=== PATIENT | female | born 1955 | race Caucasian/White ===

== ENCOUNTER → 2017-08-16 | Outpatient (CLI) | payer OTHER ==
[~2017-08-16] MED LIST: ASPCH81X PO; ATEN-171 PO; CLOP1TAB15 PO; CRS/10 PO; FEXO1TAB58 PO; HYDR25SU20 PR; NITR0.4S UT; OPTIRAY 320 IV PRN; POTA-335 PO
--- NOTE | 2017-08-16 13:22 | DIAGNOSTIC IMAGING REPORT ---
CT SCAN OF THE CHEST, ABDOMEN, AND PELVIS WITH IV CONTRAST CLINICAL HISTORY: Colon cancer. COMPARISON STUDY: Chest x-ray dated 10/12/2012. TECHNIQUE: Following the IV administration of 94 of Optiray 320, CT scan of the chest, abdomen, and pelvis was performed from the thoracic inlet to the proximal femora. Images are reviewed in the axial, sagittal, and coronal planes. IV contrast was administered without complication. Automated dose control exposure was utilized. A dose lowering technique was utilized adhering to the principles of ALARA. CT DOSE: 1154.62 mGy.cm FINDINGS: CHEST: Thyroid: Imaged portions of the thyroid gland are normal in size and attenuation. Low-attenuation thyroid nodules measure up to 12 mm. Thoracic aorta: The thoracic aorta is normal in caliber and demonstrates standard 3-vessel arch anatomy. No dissection is seen. Pulmonary vasculature: The pulmonary trunk is normal in caliber. There are no filling defects identified in the central pulmonary vessels to indicate pulmonary embolus. Note that this examination was not protocoled for evaluation of the pulmonary arteries. Heart: The heart is normal in size and without pericardial effusion. The coronary arteries are densely calcified. Lungs and pleural spaces: The lungs and pleural spaces are clear. The trachea and central airways are patent. Mediastinum: There is no mediastinal lymphadenopathy. Basia: Clear. Axillae: There is no axillary lymphadenopathy. Bony thorax: The skeletal structures are osteopenic. Degenerative change is noted throughout the thoracic spine. Sclerotic foci are seen in the bodies of T4 and T6, measuring up to 9 mm. These likely represent bone islands. No destructive osseous lesion is clearly seen. ABDOMEN AND PELVIS: Liver: The contrast-enhanced liver is top normal in size measuring 17.5 cm in length. The liver demonstrates diffusely diminished attenuation consistent with hepatic steatosis. More focal fatty infiltration is seen adjacent to falciform ligament. There is no intrahepatic or ductal dilatation. The hepatic veins and portal veins are patent. Gallbladder: Unremarkable. Spleen: Normal in size and attenuation. There are calcified splenic granulomas. There is a 1.4 cm peripherally calcified splenic artery aneurysm. Pancreas: Unremarkable. Adrenal glands: Unremarkable. Kidneys: The contrast enhanced kidneys demonstrate mild cortical atrophy and are without hydronephrosis. There are small bilateral extrarenal pelvises. The kidneys enhance symmetrically. Abdominal vasculature: The abdominal aorta is normal in course and caliber noting mild atherosclerotic calcification. Bowel: There are postoperative changes from sigmoid colon resection with colocolonic anastomosis. No bowel obstruction is identified. There are scattered colonic diverticula without CT evidence of acute diverticulitis. Mild colonic fecal retention is observed. The appendix is well-visualized and normal. Peritoneum: There is no intraperitoneal free air or abdominal ascites. Lymphadenopathy: None. Pelvic viscera: The bladder, uterus, and adnexa are normal as visualized. Skeletal structures: The skeletal structures are osteopenic. There is mild to moderate lumbosacral spondylosis. No lytic or blastic lesions are seen. IMPRESSION: 1. There is no evidence of metastatic disease in the chest, abdomen, or pelvis. 2. There are postoperative changes from sigmoid colon resection with colonic anastomosis. No bowel obstruction is seen. 3. Mild colonic diverticulosis without CT evidence of acute diverticulitis. 4. Hepatic steatosis. 5. The lungs are clear. 6. There is a 1.4 cm peripherally calcified splenic artery aneurysm. 7. Additional findings as above. Electronically signed by: Antonio Meléndez M.D. 08/16/2017 1:21 PM Dictated Date/Time: 08/16/2017 1:00 PM
== END | disposition home or self-care (01) ==
LOC: C.CTS 12:24
PROVIDERS: ATTEND Internal Medicine Hematology & Oncology
DX: Z85.038 Personal history of other malignant neoplasm of large intestine (principal); K76.0 Fatty (change of) liver, not elsewhere classified; I72.8 Aneurysm of other specified arteries

== ENCOUNTER → 2017-11-23 | Outpatient (CLI) | payer OTHER ==
[~2017-11-23] MED LIST changes: -OPTIRAY 320 IV PRN
[2017-11-23 13:00] LABS: ALBUMIN 4.2 gm/dl (3.4-5.0); ALKALINE PHOSPHATASE 103 U/L (45-117); ALT/SGPT 29 U/L (12-78); AST/SGOT 16 U/L (15-37); BLOOD UREA NITROGEN 20 mg/dl (7-18); CARBON DIOXIDE 27 mmol/L (21-32); CHOLESTEROL 125 mg/dl (0-200); CREATININE 0.96 mg/dl (0.60-1.20); GLUCOSE 107 mg/dl (70-99); LDL CHOLESTEROL CALCULATED 57 mg/dl; POTASSIUM 3.7 mmol/L (3.5-5.1); SODIUM 142 mmol/L (136-145); TOTAL PROTEIN 7.1 gm/dl (6.4-8.2)
== END | disposition home or self-care (01) ==
LOC: C.LABBFT 07:51
PROVIDERS: ATTEND Internal Medicine
DX: Z00.00 Encounter for general adult medical examination without abnormal findings (principal); I10 Essential (primary) hypertension; E78.5 Hyperlipidemia, unspecified; I25.10 Atherosclerotic heart disease of native coronary artery without angina pectoris; R20.2 Paresthesia of skin

== ENCOUNTER 2019-05-30 09:46 | Inpatient (IN) ==
[2019-05-30] MEDS ORDERED: SODIUM CHLORIDE 0.9% 500 ML IV ONE (10:55)
[2019-05-30 11:17] LABS: Basophils # (auto) 0.03 K/uL (0-0.2); Basophils % (auto) 0.5 %; Eosinophils # (auto) 0.16 K/uL (0-0.5); Eosinophils % (auto) 2.6 %; Hematocrit (blood only) 38.2 % (37-47); Hemoglobin 13.4 g/dL (12.0-16.0); Immature Granulocytes # (auto) 0.02 K/uL (0.00-0.02); Immature Granulocytes % (auto) 0.3 %; Lymphocytes # (auto) 1.54 K/uL (1.2-3.4); Lymphocytes % (auto) 25.5 %; Mean Corpuscular Hemoglobin 30.2 pg (25-34); Mean Corpuscular Hgb Conc 35.1 g/dL (32-36); Mean Platelet Volume 10.7 fL (7.4-10.4); Monocytes # (auto) 0.55 K/uL (0.11-0.59); Monocytes % (auto) 9.1 %; Neutrophils # (auto) 3.74 K/uL (1.4-6.5); Platelet Count 245 K/uL (130-400); RDW Standard Deviation 41.4 fL (36.4-46.3); Red Blood Count 4.44 M/uL (4.2-5.4); White Blood Count 6.04 K/uL (4.8-10.8)
[2019-05-30 11:33] LABS: Partial Thromboplastin Time 26.8 Seconds (21.0-31.0); Prothrombin Time 10.2 Seconds (9.0-12.0)
[2019-05-30 11:35] LABS: Alanine Aminotransferase 24 U/L (12-78); Aspartate Aminotransferase 11 U/L (15-37); BUN Creatinine Ratio 16.5 (10-20); Blood Urea Nitrogen 19 mg/dl (7-18); Calcium 9.2 mg/dl (8.5-10.1); Carbon Dioxide 26 mmol/L (21-32); Chloride 110 mmol/L (98-107); Creatinine Clr Calc Pharmacy 51.3 ml/min; Est GFR (African American) 57.2; Est GFR (Non-African American) 49.4; Glucose 126 mg/dl (70-99); Lipase 169 U/L (73-393); Magnesium 1.5 mg/dl (1.8-2.4); Potassium 3.5 mmol/L (3.5-5.1); Sodium 140 mmol/L (136-145)
[2019-05-30 11:46] LABS: Albumin Globulin Ratio 1.1 (0.9-2); Alkaline Phosphatase 119 U/L (45-117); Bilirubin,Total 0.6 mg/dl (0.2-1); Globulin 3.6 gm/dl (2.5-4.0); Phosphorus 2.7 mg/dl (2.5-4.9); Total Protein 7.6 gm/dl (6.4-8.2); Troponin I < 0.015 ng/ml (0-0.045)
[2019-05-30 12:09] LABS: Appearance Urine Clear (Clear); Bilirubin Urine Negative (Negative); Blood Urine Negative (Negative); Color Urine Yellow; Glucose Urine UA Negative (Negative); Ketones Urine Negative (Negative); Leukocyte Esterase Urine Negative (Negative); Nitrite Urine Negative (Negative); Protein Urine Negative (Negative); Specific Gravity Urine 1.007 (1.000-1.030); Urobilinogen Urine Negative (Negative)
--- NOTE | 2019-05-30 12:21 | XRay Report ---
XR chest 1V portable HISTORY: Atypical Chest Pain COMPARISON: Chest 10/20/2012. FINDINGS: The lungs are clear. Cardiac silhouette is normal in size. No pleural effusions. No pneumot horax. IMPRESSION: No acute process. ACT 112: Negative or not required by law. Electronically signed by: Daniel Andrews M.D. 05/30/2019 12:19 PM
[2019-05-30] MEDS ORDERED: OPTIRAY 320 125ml IV PRN (12:26)
--- NOTE | 2019-05-30 12:44 | CT Scan Report ---
CT head/brain wo con CLINICAL HISTORY: 63 years-old Female with dizziness, ataxia. Acute dizziness TECHNIQUE: Multiple axial CT images of the head were obtained without contrast. A dose lowering tech nique was utilized adhering to the principles of ALARA. COMPARISON: None. FINDINGS: No acute intracranial hemorrhage, midline shift, intracranial mass, hydrocephalus, territorial ischem ia or abnormal extra-axial collection. Age-related involutional changes. Mild patchy white matter hyp odensities suggest chronic microvascular ischemic disease. Cerebral vascular calcifications are noted . Subtle decreased attenuation of the left thalamus, and left cerebral peduncle. Cerebral vascular ca lcifications are noted. The calvarium is intact. The paranasal sinuses, mastoid air cells, and middle ear cavities are clear . IMPRESSION: 1. No acute intracranial hemorrhage, midline shift or acute territorial infarct. 2. Ill-defined decreased attenuation of the left elaine and left cerebral peduncle may be artifactual o r reflect a small subtle acute infarct. Correlate with clinical presentation. ACT 112: Negative or not required by law. The above report was generated using voice recognition software. It may contain grammatical, syntax o r spelling errors. Electronically signed by: Saleem Groves M.D. 05/30/2019 12:39 PM
--- NOTE | 2019-05-30 12:53 | CT Scan Report ---
CT angio neck with con CLINICAL HISTORY: 63 years-old Female presenting with dizziness, ataxia. TECHNIQUE: Multidetector CT angiography of the neck was performed after the administration of intrave nous contrast. 3-D volumetric and/or maximum intensity projection (MIP) images were subsequently delmy nstructed for review. IV contrast: 120 mL of Optiray 320. One or more dose lowering techniques were u sed consistent with the principles of ALARA (as low as reasonably achievable), including automatic ex posure control, mA or kV adjustment to individual patient size, and/or use of iterative reconstructio n. Stenosis measurements were based on NASCET-like criteria (distal lumen diameter as the denominator for stenosis measurement). COMPARISON: None. CT DOSE (mGy.cm): The estimated cumulative dose is 1099.92 mGy.cm. 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 Aortic arch: Normal three-vessel aortic arch with patent origins of the branch vessels. Innominate artery: Patent. Right subclavian artery: Patent. Right common carotid artery: Patent. Right internal and external carotid arteries: Right carotid bifurcation patent. Right internal and ex ternal carotid arteries widely patent. Left common carotid artery: Patent. Left internal and external carotid arteries: Left carotid bifurcation patent. Left internal and exter nal carotid arteries widely patent. Left subclavian artery: Patent though there is focal calcified atherosclerotic plaque along the proxi mal course with less than 25% stenosis. Vertebral arteries: Codominant vertebral arteries. Origins and courses of the bilateral vertebral art eries patent. Other: Limited intracranial evaluation within normal limits. Multiple thyroid nodules noted. Degenera tive changes of the cervical spine. Lung apices clear. IMPRESSION: 1. No evidence of dissection, focal vessel occlusion, or significant stenosis of the cervical arteri es. ACT 112: Negative or not required by law. Electronically signed by: Parker Siddiqui M.D. 05/30/2019 12:51 PM
--- NOTE | 2019-05-30 12:59 | CT Scan Report ---
HEAD CTA HISTORY: dizziness, ataxia TECHNIQUE: Multiaxial CT images of the head were performed both before and after the intravenous admi nistration of contrast to evaluate the major cerebral vessels. Maximum intensity projection images we re also obtained. A dose lowering technique was utilized adhering to the principles of ALARA. COMPARISON: Head CT 05/30/2019. FINDINGS: The major dural venous sinuses are patent. The basilar artery is hypoplastic but patent. Pe rsistent posterior circulations seen bilaterally. This is considered to be a normal variant. Vi sualized intracranial internal carotid arteries, distal vertebral arteries, and basilar artery are wi iman patent. There is no significant stenosis, occlusion, or aneurysm seen within the bilateral ACAs, MCAs, or glass presser. IMPRESSION: No significant stenosis, occlusion, or aneurysm within the [place]. ACT 112: Negative or not required by law. Electronically signed by: Daniel Andrews M.D. 05/30/2019 12:57 PM
[2019-05-30] MEDS: MAGNESIUM SULFATE / D5W 1 GM/100 ML BAG IV SCH ×2 (13:34→14:54)
--- NOTE | 2019-05-30 14:34 | Electrocardiogram Report ---
Test Reason : Blood Pressure : / mmHG Vent. Rate : 067 BPM Atrial Rate : 067 BPM P-R Int : 180 ms QRS Dur : 078 ms QT Int : 386 ms P-R-T Axes : 036 016 039 degrees QTc Int : 407 ms Normal sinus rhythm Minimal voltage criteria for LVH, may be normal variant Nonspecific ST abnormality Abnormal ECG When compared with ECG of 20-JAN-2012 07:20, QT has shortened Confirmed by Camacho Davidson ([id number]) on 05/30/2019 2:33:50 PM Referred By: Confirmed By:Camacho Davidson
--- NOTE | 2019-05-30 16:08 | History & Physical Report ---
Date of Service May 30, 2019 Assessment & Plan (1) CVA (cerebral vascular accident): Presumed based on CT head and patient symptoms of vertigo and off balanced gait. MRI brain w w/o contrast Consult neurology Patient came in on ASA therefore will switch to clopidogrel with first does in ER. Well outside time for tPA. Protocol neuro checks for no tPA CVA TTE Monitor for arrhythmias on telemetry Slowly reduce blood pressure - see below for hypertension Start rosuvastatin 20mg (see below for myalgias related to statin use) Lipid panel and HbA1C in AM (2) Blurring of visual image of both eyes: Resolved. ?hypotensive. Recommend orthostatics prior to discharge as this part of her story sounds more orthostatic dizziness. (3) Vertigo: I suspect this is the dizziness she is feeling despite it being different to the more concrete vertiginous episode 6 months prior. Certainly the cause would be to rule out stroke as above however managing to bring on symptoms with head movement suggest BPPV if stroke is ruled out. (4) Hypertension: Allow permissive hypertension in setting of stroke. Will restart her usual medication other than chlorthalidone to achieve this. Continue amlodipine 5mg, losartan 100 mg, metoprolol XL 50 mg (5) Hypomagnesemia: Mg level 1.5 with associated cramps at night. Mg sulphate 2g IV given in ER. Will add 400mg Mg Ox BID. (6) Peripheral neuropathy due to chemotherapy: Continue gabapentin 600 mg HS (7) CAD (coronary artery disease): ASA switched to plavix as above. Continue metoprolol, losartan and switching statin to Crestor as above. 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 Switched to rosuvastatin to see if she does better on this. (9) Impacted ear wax: Instructed to use Debrox OTC on discharge and f/u with PCP. STOP USING Q TIPS. (10) DVT prophylaxis: SCDs. If staying beyond tomorrow consider chemical prophylaxis. (11) Discharge planning issues: PT/OT/speech History of Present Illness Chief Complaint: Stroke-like symptoms Primary Care Provider: Berta Odonnell MD Ramona Serrato is a 63 year old female who presented to the ER due to dizziness and eye blurring that has been persistent since she woke up yesterday. She had an episode which sounds vertiginous 6 months ago where "the whole room felt like an earthquake". She feels this episode was very different to that one an mainly manifested as eye blurring with left > right but with associated dizziness although she did not feel she was going to faint. Episodes would last for hours at a time. She is able to bring on the the same sensation intermittently by turning her head to the left even when lying down. She denies any change in speech, hearing, co-ordination, extremity weakness or change in sensation. No fevers, chills, left ear pain/fullness, nasal congestion, sinus pain. Allergies Allergy/AdvReac Type Severity Reaction Status Date / Time cat dander Allergy Unknown cough,runny Verified 04/13/19 15:38 nose No Known Drug Allergies Allergy Unknown . Verified 04/13/19 15:38 Home Medications Home Medications Medication Instructions Recorded Confirmed Type amlodipine 5 mg tablet 5 mg PO DAILY #90 tab 03/13/19 05/30/19 Rx aspirin 81 mg tablet,delayed 81 mg PO DAILY #90 tab 03/13/19 05/30/19 Rx release atorvastatin 20 mg tablet 20 mg PO QPM #90 tab 03/13/19 05/30/19 Rx chlorthalidone 25 mg tablet 25 mg PO DAILY #90 tab 03/13/19 05/30/19 Rx losartan 100 mg tablet 100 mg PO DAILY #90 tab 03/13/19 05/30/19 Rx metoprolol succinate 50 mg 50 mg PO DAILY #90 tab 03/13/19 05/30/19 Rx tablet,extended release 24 hr nitroglycerin 0.4 mg sublingual 0.4 mg SL Q5M PRN #25 tab 03/13/19 05/30/19 Rx tablet omeprazole 40 mg capsule,delayed 40 mg PO DAILY #90 cap 03/13/19 05/30/19 Rx release potassium chloride 20 mEq 20 meq PO BID #180 tab 03/13/19 05/30/19 Rx tablet,extended release gabapentin 300 mg capsule 600 mg PO HS #90 cap 04/13/19 05/30/19 Rx meloxicam 15 mg tablet 15 mg PO DAILY #90 tab 04/13/19 05/30/19 Rx Past Med/Surg History Medical History (Updated 05/31/19 @ 02:22 by Ric Bourne MD) CAD (coronary artery disease) stent in LAD 2012 Colon cancer (Resolved) s/p surgery and chemotherapy Dyslipidemia GERD (gastroesophageal reflux disease) Hypertension Lumbar degenerative disc disease Peripheral neuropathy secondary to chemotherapy Peripheral neuropathy due to chemotherapy Spinal stenosis Surgical History History of partial colectomy Social History (Updated 05/30/19 @ 16:07 by Ric Bourne MD) Preferred Language: Yakut Communication Ability: Effective Cell Reliner Required: No Beliefs That Will Affect Care: None marital status: marital status details: 1973 Current Living Situation: Spouse current occupational status: retired Other Information That Helps Us Care for You: No Feels Safe at Home: Yes Safety Concerns: Feels Safe At This Time Smoking Status: Never smoker Hx Alcohol Use: No Hx Substance Use: No Review of Systems Review of Systems: All systems reviewed & are unremarkable except as noted in HPI & below Physical Exam Constitutional: WD/WN, vitals as above Eyes: PERRL, conjunctivae normal, anicteric sclerae ENMT: external ear and nose normal, oropharynx normal Ears: + unable to visualize TM (left due to impacted wax) Neck: trachea midline, no thyromegaly Respiratory: normal respiratory effort, lungs clear to auscultation Cardiovascular: RRR, no murmur, no edema Gastrointestinal (Abdomen): normal bowel sounds, soft, nontender, no hepatosplenomegaly Musculoskeletal: no cyanosis or clubbing, extremities motor strength 5/5 Skin: no rashes, warm and dry Neurologic: moves all extremities and awake; no focal motor deficits and not confused Speech / Cognition: normal speech, no expressive aphasia and no receptive aphasia Motor/Sensory: + sensory deficit (chronic stocking peripheral + non acute L2 left radicular Sx); no tremor and no pronator drift Cranial Nerves: PERRL, normal accommodation, EOM intact bilaterally, normal facial strength, able to rotate head bilaterally, able to elevate shoulders bilaterally and no nystagmus Gait: + staggering gait (to left) Coordination: normal [id number] test Psychiatric: A+Ox3, euthymic affect Lymphatic: no cervical or axillary lymphadenopathy Results & Data Vital Signs (Past 12 Hours) Vital Signs Temp Pulse Pulse Resp BP BP Pulse Ox 05/30/19 15:00 70 20 170/88 H 95 05/30/19 14:30 60 14 163/89 H 95 05/30/19 14:00 71 16 158/93 H 96 05/30/19 13:33 62 15 160/76 H 96 05/30/19 13:30 65 19 05/30/19 13:23 66 22 05/30/19 12:01 66 18 99 05/30/19 12:00 71 28 H 143/88 H 96 05/30/19 11:31 72 16 97 05/30/19 11:30 70 20 175/97 H 97 05/30/19 11:10 74 17 170/93 H 96 05/30/19 11:00 77 18 05/30/19 10:55 72 13 169/88 H 05/30/19 10:52 68 20 169/88 H 98 05/30/19 10:10 36.9 C 84 20 178/91 H 94 Diagnostic Findings XR chest 1V portable IMPRESSION: No acute process. CT head/brain wo con IMPRESSION: 1. No acute intracranial hemorrhage, midline shift or acute territorial infarct. 2. Ill-defined decreased attenuation of the left elaine and left cerebral peduncle may be artifactual or reflect a small subtle acute infarct. Correlate with clinical presentation. HEAD CTA IMPRESSION: No significant stenosis, occlusion, or aneurysm within the [place]. CT angio neck with con IMPRESSION: 1. No evidence of dissection, focal vessel occlusion, or significant stenosis of the cervical arteries. ECG Indication: other (stroke-like symptoms) Rate (beats per minute): 67 Rhythm: normal sinus Findings: no acute ischemic change Comparison ECG Date: from (05/30/2019) Change: no significant change Code Status & VTE Plan Code Status Full VTE Prophylaxis Plan VTE Prophylaxis will be ordered: Yes PG Care Time/CCT Total # of Minutes Spent Total Time Spent with Patient: Total time spent is greater than 50% in co ordination of care (as documented) at patient's floor/unit and/or counseling patient: Coding Level of Care Code 70291 Initial Inpt Care Lvl 3 Diagnoses CVA (cerebral vascular accident) I63.9 CVA mechanism: unspecified Blurring of visual image of both eyes H53.8 Vertigo R42 Hypertension I10 Hypertension type: essential hypertension Hypomagnesemia E83.42 Peripheral neuropathy due to chemotherapy G62.0; T45.1X5A CAD (coronary artery disease) I25.10 Coronary Disease-Associated Artery/Lesion type: [place] artery [place] vs. transplanted heart: [place] heart Associated angina: without angina Myalgia due to HMG CoA reductase inhibitor M79.10; T46.6X5A Impacted ear wax H61.22 Laterality: left DVT prophylaxis Z29.9 Discharge planning issues Z02.9 (1) CVA (cerebral vascular accident) CVA mechanism: unspecified Qualified Code(s): I63.9 - Cerebral infarction, unspecified (2) Hypertension Hypertension type: essential hypertension Qualified Code(s): I10 - Essential (primary) hypertension (3) CAD (coronary artery disease) Coronary Disease-Associated Artery/Lesion type: [place] artery [place] vs. transplanted heart: [place] heart Associated angina: without angina Qualified Code(s): I25.10 - Atherosclerotic heart disease of [place] coronary artery without angina pectoris (4) Impacted ear wax Laterality: left Qualified Code(s): H61.22 - Impacted cerumen, left ear
[2019-05-30] MEDS ORDERED: CLOPIDOGREL BISULFATE 75 MG TAB PO ONE (16:09)
[2019-05-30] MEDS ORDERED: PHARMACIST DISCHARGE MED REC CONSULT PRN (16:58)
[2019-05-30] MEDS ORDERED: NITROGLYCERIN SL 0.4 MG/TAB TAB SL PRN (17:58)
[2019-05-30] MEDS ORDERED: LORazepam 0.5 MG/1 ML VIAL IV PRN (18:10)
[2019-05-30] MEDS ORDERED: LORazepam 2 MG/4 ML VIAL ONE (18:15)
[2019-05-30] MEDS ORDERED: GADOBUTROL 65ML VIAL IV PRN (19:34)
--- NOTE | 2019-05-30 19:48 | Magnetic Resonance Report ---
MRI OF THE BRAIN WITHOUT AND WITH IV CONTRAST CLINICAL HISTORY: CVA, vertigo and left sided drift COMPARISON STUDY: Head CT and CTA of the head performed earlier today. TECHNIQUE: Utilizing a 1.5 Marquita magnet and dedicated coil, multiplanar, multiecho imaging of the br ain was performed pre and postcontrast administration. IV administration of 8 mL of Gadavist contras t was uneventful. FINDINGS: Exam is mildly compromised by motion artifact but is diagnostic. There are no foci of restr icted diffusion to suggest acute infarct. The possible abnormality on head CT performed earlier today within the left elaine and cerebral peduncle was artifactual. No acute intracranial hemorrhage, midlin e shift or mass effect is present. Ventricular system is unremarkable. Basilar cisterns are patent. T here are no extra axial collections. There is mild atrophy. There is minimal periventricular T2 hyper intensity suggestive of small vessel disease. Calvarial signal is normal. Right occipital scalp sebac eous cyst is incidentally noted. IMPRESSION: 1. No acute intracranial findings. The possible abnormality within the left elaine and cerebral peduncl e on prior CT was artifactual. 2. No intracranial mass or pathologic enhancement. 3. Exam mildly compromised by motion artifact. ACT 112: Negative or not required by law. Electronically signed by: Lazaro Odonnell M.D. 05/30/2019 7:46 PM
[2019-05-30] MEDS ORDERED: ROSUVASTATIN CALCIUM 20 MG TAB PO SCH (21:00)
[2019-05-30] MEDS ORDERED: GABAPENTIN 300 MG CAP PO SCH (21:00)
[2019-05-30] MEDS: MAGNESIUM OXIDE 400 MG TAB PO SCH (21:30)
[2019-05-30] MEDS: POTASSIUM CHLORIDE 20 MEQ TABCR PO SCH (21:30)
--- NOTE | 2019-05-31 02:09 | Emergency Department Note ---
Entered by Christine Chance acting as a scribe for Everton Oakes MD History of Present Illness General Chief complaint: Dizziness Stated complaint: DIZZY BLURRED VISION Time Seen by Provider: 05/30/19 10:54 Source: patient History of Present Illness Onset (ago): day(s) 1 Location: head (dizziness) Pain Consistency: + other (persistent) Maximum Pain Intensity: 3 Quality: + other (dizziness) Associated symptoms: + weakness and + other (Positive dizziness, left leg weakness and tingling. Negative double vision, left arm numbness. ) Treatments prior to arrival: none The patient is a 63 year old female presenting to the Emergency Department complaining of persistent dizziness starting 1 day ago. The patient reports that she began to feel weak yesterday at 1000. She states that she became dizzy yesterday at 1600. She explains that she started experiencing blurred vision out of her left eye and that she is currently experiencing this but only when she looks side to side and not when she is looking straight ahead. She notes that her left leg is weak and feels a tingling sensation in it. She adds that when she walks she has noticed herself slightly leaning to the left. 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 She denies nausea, vomiting, double vision and left arm numbness. Home Medications Home Medications Medication Instructions Recorded Confirmed Type amlodipine 5 mg tablet 5 mg PO DAILY #90 tab 03/13/19 05/30/19 Rx aspirin 81 mg tablet,delayed 81 mg PO DAILY #90 tab 03/13/19 05/30/19 Rx release atorvastatin 20 mg tablet 20 mg PO QPM #90 tab 03/13/19 05/30/19 Rx chlorthalidone 25 mg tablet 25 mg PO DAILY #90 tab 03/13/19 05/30/19 Rx losartan 100 mg tablet 100 mg PO DAILY #90 tab 03/13/19 05/30/19 Rx metoprolol succinate 50 mg 50 mg PO DAILY #90 tab 03/13/19 05/30/19 Rx tablet,extended release 24 hr nitroglycerin 0.4 mg sublingual 0.4 mg SL Q5M PRN #25 tab 03/13/19 05/30/19 Rx tablet omeprazole 40 mg capsule,delayed 40 mg PO DAILY #90 cap 03/13/19 05/30/19 Rx release potassium chloride 20 mEq 20 meq PO BID #180 tab 03/13/19 05/30/19 Rx tablet,extended release gabapentin 300 mg capsule 600 mg PO HS #90 cap 04/13/19 05/30/19 Rx meloxicam 15 mg tablet 15 mg PO DAILY #90 tab 04/13/19 05/30/19 Rx Allergies Allergy/AdvReac Type Severity Reaction Status Date / Time cat dander Allergy Unknown cough,runny Verified 04/13/19 15:38 nose No Known Drug Allergies Allergy Unknown . 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 and A total of 10 systems reviewed and were otherwise negative Physical Exam Vital Signs Vital Signs - 24 hr 05/30/19 10:10 05/30/19 10:52 05/30/19 10:54 Temperature 36.9 C Temperature Source Oral Pulse Rate 84 Pulse Rate [Left Finger] 68 Pulse Rate from SpO2 Sensor Respiratory Rate 20 20 Blood Pressure 178/91 H Blood Pressure [Left Arm] 169/88 H Blood Pressure Mean 120 Blood Pressure Mean [Left Arm] 115 Pulse Oximetry 94 98 Oxygen Delivery Method Room Air Room Air Sepsis Recent Fever Within 48 Hours No Sepsis New/Unexplained Change in Mental Status No Sepsis Action Taken by Nursing No Action Required 05/30/19 10:55 05/30/19 11:00 05/30/19 11:10 Temperature Temperature Source Pulse Rate 72 77 74 Pulse Rate [Left Finger] Pulse Rate from SpO2 Sensor 74 Respiratory Rate 13 18 17 Blood Pressure 169/88 H 170/93 H Blood Pressure [Left Arm] Blood Pressure Mean 133 134 Blood Pressure Mean [Left Arm] Pulse Oximetry 96 Oxygen Delivery Method Room Air Sepsis Recent Fever Within 48 Hours Sepsis New/Unexplained Change in Mental Status Sepsis Action Taken by Nursing 05/30/19 11:30 05/30/19 11:31 05/30/19 12:00 Temperature Temperature Source Pulse Rate 70 72 71 Pulse Rate [Left Finger] Pulse Rate from SpO2 Sensor 70 71 70 Respiratory Rate 20 16 28 H Blood Pressure 175/97 H 143/88 H Blood Pressure [Left Arm] Blood Pressure Mean 139 113 Blood Pressure Mean [Left Arm] Pulse Oximetry 97 97 96 Oxygen Delivery Method Room Air Sepsis Recent Fever Within 48 Hours Sepsis New/Unexplained Change in Mental Status Sepsis Action Taken by Nursing 05/30/19 12:01 05/30/19 13:23 05/30/19 13:30 Temperature Temperature Source Pulse Rate 66 66 65 Pulse Rate [Left Finger] Pulse Rate from SpO2 Sensor 70 Respiratory Rate 18 22 19 Blood Pressure Blood Pressure [Left Arm] Blood Pressure Mean Blood Pressure Mean [Left Arm] Pulse Oximetry 99 Oxygen Delivery Method Sepsis Recent Fever Within 48 Hours Sepsis New/Unexplained Change in Mental Status Sepsis Action Taken by Nursing 05/30/19 13:33 05/30/19 14:00 05/30/19 14:30 Temperature Temperature Source Pulse Rate 62 71 60 Pulse Rate [Left Finger] Pulse Rate from SpO2 Sensor 62 69 61 Respiratory Rate 15 16 14 Blood Pressure 160/76 H 158/93 H 163/89 H Blood Pressure [Left Arm] Blood Pressure Mean 94 95 121 Blood Pressure Mean [Left Arm] Pulse Oximetry 96 96 95 Oxygen Delivery Method Sepsis Recent Fever Within 48 Hours Sepsis New/Unexplained Change in Mental Status Sepsis Action Taken by Nursing 05/30/19 15:00 05/30/19 15:30 Temperature Temperature Source Pulse Rate 70 63 Pulse Rate [Left Finger] Pulse Rate from SpO2 Sensor 63 Respiratory Rate 20 20 Blood Pressure 170/88 H Blood Pressure [Left Arm] Blood Pressure Mean 113 Blood Pressure Mean [Left Arm] Pulse Oximetry 95 95 Oxygen Delivery Method Room Air Sepsis Recent Fever Within 48 Hours Sepsis New/Unexplained Change in Mental Status Sepsis Action Taken by Nursing GENERAL: Patient is fatigued appearing. Awake, alert, in no distress HENT: Normocephalic, atraumatic. Oropharynx with dry mucous membranes and otherwise unremarkable. EYES: Normal conjunctiva. Sclera non-icteric. EOMI. No nystamgus. PEARRL. NECK: Supple. No nuchal rigidity. FROM. No JVD. RESPIRATORY: CTAB. CARDIAC: Regular rate, normal rhythm. Extremities warm and well perfused. Pulses equal. ABDOMEN: Soft, non-distended. No tenderness to palpation. No rebound or guarding. No masses. RECTAL: Deferred. MUSCULOSKELETAL: Chest examination reveals no tenderness. The back is symmetrical on inspection without obvious abnormality. There is no CVA tenderness to palpation. No joint edema. LOWER EXTREMITIES: Calves are equal size bilaterally and non-tender. No edema. No discoloration. NEURO: Normal sensorium. No sensory or motor deficits noted. 5/5 strength. SILT x 4 extremities. Normal cerebellar function including finger to nose, alternating palms and heal to river. SKIN: No rash or jaundice noted. Course Course 1115: The patient was evaluated in room C7, and a complete history and physical examination were performed. 1206: I reevaluated the patient at this time. 1356: I discussed the patients case with Dr. Bourne [facility] hospitalist. He will evaluate the patient for further management. Administered Medications Gabapentin (Neurontin) 600 mg PO HS [facility] Stop: 06/29/19 20:59 Last Admin: 05/30/19 20:37 Dose: 600 mg Documented by: [id number] Gadobutrol (Gadavist 65ml) 8 ml IV ONCE PRN PRN Reason: Interaction Checking Stop: 06/03/19 19:33 Last Admin: 05/30/19 19:34 Dose: 8 ml Documented by: [id number] Magnesium Oxide (Mag-Ox) 400 mg PO BID DANIELLE Stop: 06/29/19 21:14 Last Admin: 05/30/19 21:30 Dose: 400 mg Documented by: [id number] Potassium Chloride (Klor-Con M20) 20 meq PO BID DANIELLE Stop: 06/29/19 20:59 Last Admin: 05/30/19 21:30 Dose: 20 meq Documented by: [id number] Rosuvastatin Calcium (Crestor) 20 mg PO HS DANIELLE Stop: 06/29/19 20:59 Last Admin: 05/30/19 20:37 Dose: 20 mg Documented by: [id number] Discontinued Medications Clopidogrel Bisulfate (Plavix) 75 mg PO NOW ONE Stop: 05/30/19 16:10 Last Admin: 05/30/19 16:19 Dose: 75 mg Documented by: [id number] Sodium Chloride (Nss) 500 mls @ 999 mls/hr IV .Q31M ONE Stop: 05/30/19 11:25 Last Infusion: 05/30/19 12:03 Dose: 0 mls/hr Documented by: [id number] Admin: 05/30/19 11:12 Dose: 999 mls/hr Documented by: [id number] Magnesium Sulfate/Dextrose (Magnesium Sulfate / D5w) 1 gm in 100 mls @ 100 mls/hr IV Q1H DANIELLE Stop: 05/30/19 14:14 Last Infusion: 05/30/19 15:59 Dose: 0 mls/hr Documented by: [id number] Admin: 05/30/19 14:54 Dose: 100 mls/hr Documented by: [id number] Infusion: 05/30/19 14:34 Dose: 100 mls/hr Documented by: [id number] Admin: 05/30/19 13:34 Dose: 100 mls/hr Documented by: [id number] Ioversol (Optiray 320 125ml) 120 ml IV ONCE PRN PRN Reason: Interaction Checking Stop: 06/03/19 12:25 Last Admin: 05/30/19 12:26 Dose: 120 ml Documented by: [id number] Lorazepam (Ativan) Confirm Administered Dose 2 mg .ROUTE .STK-MED ONE Stop: 05/30/19 18:16 Last Increment: 05/30/19 18:20 Dose: 0.5 mg Documented by: [id number] Medical Decision Making Differential Diagnosis Differential Diagnosis includes but is not limited to dehydration, stroke, anemia, hypoglycemia, hyponatremia, hypernatremia, urinary tract infection, pneumonia, bronchitis, sepsis, gastroenteritis, additional abdominal pathology, metabolic abnormalities and infections. Medical Records Attestation: I reviewed the patient's medical records. Home Medications Current Medication List: was personally reviewed by me Laboratory Data Attestation: I reviewed the patient's lab results. Result diagrams: 05/30/19 11:00 05/30/19 11:00 Lab Results 05/30/19 05/30/19 05/30/19 Range/Units 11:00 11:00 11:00 WBC 6.04 (4.8-10.8) K/uL RBC 4.44 (4.2-5.4) M/uL Hgb 13.4 (12.0-16.0) g/dL Hct 38.2 (37-47) % MCV 86.0 (80-100) fL MCH 30.2 (25-34) pg MCHC 35.1 (32-36) g/dL RDW Std Deviation 41.4 (36.4-46.3) fL RDW Coeff of Daniella 13.0 (11.5-14.5) % Plt Count 245 (130-400) K/uL MPV 10.7 H (7.4-10.4) fL Immature Gran % (Auto) 0.3 % Neut % (Auto) 62.0 % Lymph % (Auto) 25.5 % [place] % (Auto) 9.1 % Eos % (Auto) 2.6 % Baso % (Auto) 0.5 % Immature Gran # (Auto) 0.02 (0.00-0.02) K/uL Neut # (Auto) 3.74 (1.4-6.5) K/uL Lymph # (Auto) 1.54 (1.2-3.4) K/uL [place] # (Auto) 0.55 (0.11-0.59) K/uL Eos # (Auto) 0.16 (0-0.5) K/uL Baso # (Auto) 0.03 (0-0.2) K/uL PT 10.2 (9.0-12.0) Seconds INR 1.0 (0.9-1.1) APTT 26.8 (21.0-31.0) Seconds PTT Ratio 1.0 Sodium 140 (136-145) mmol/L Potassium 3.5 (3.5-5.1) mmol/L Chloride 110 H (98-107) mmol/L Carbon Dioxide 26 (21-32) mmol/L Anion Gap 4.0 (3-11) BUN 19 H (7-18) mg/dl Creatinine 1.16 (0.6-1.2) mg/dl Est Cr Clr Drug Dosing 51.3 ml/min Est GFR ( Amer) 57.2 Est GFR (Non-Af Amer) 49.4 BUN/Creatinine Ratio 16.5 (10-20) Glucose 126 H (70-99) mg/dl Calcium 9.2 (8.5-10.1) mg/dl Phosphorus 2.7 (2.5-4.9) mg/dl Magnesium 1.5 L (1.8-2.4) mg/dl Total Bilirubin 0.6 (0.2-1) mg/dl AST 11 L (15-37) U/L ALT 24 (12-78) U/L Alkaline Phosphatase 119 H (45-117) U/L Troponin I < 0.015 (0-0.045) ng/ml Total Protein 7.6 (6.4-8.2) gm/dl Albumin 4.0 (3.4-5.0) gm/dl Globulin 3.6 (2.5-4.0) gm/dl Albumin/Globulin Ratio 1.1 (0.9-2) Lipase 169 (73-393) U/L TSH 1.890 (0.300-4.500) uIu/ml Urine Color Urine Appearance (Clear) Urine pH (4.5-7.5) Ur Specific Gard[place] (1.000-1.030) Urine Protein (Negative) Urine Glucose (UA) (Negative) Urine Ketones (Negative) Urine Blood (Negative) Urine Nitrite (Negative) Urine Bilirubin (Negative) Urine Urobilinogen (Negative) Ur Leukocyte Esterase (Negative) 05/30/19 05/30/19 Range/Units 11:00 11:55 WBC (4.8-10.8) K/uL RBC (4.2-5.4) M/uL Hgb (12.0-16.0) g/dL Hct (37-47) % MCV (80-100) fL MCH (25-34) pg MCHC (32-36) g/dL RDW Std Deviation (36.4-46.3) fL RDW Coeff of Daniella (11.5-14.5) % Plt Count (130-400) K/uL MPV (7.4-10.4) fL Immature Gran % (Auto) % Neut % (Auto) % Lymph % (Auto) % [place] % (Auto) % Eos % (Auto) % Baso % (Auto) % Immature Gran # (Auto) (0.00-0.02) K/uL Neut # (Auto) (1.4-6.5) K/uL Lymph # (Auto) (1.2-3.4) K/uL [place] # (Auto) (0.11-0.59) K/uL Eos # (Auto) (0-0.5) K/uL Baso # (Auto) (0-0.2) K/uL PT (9.0-12.0) Seconds INR (0.9-1.1) APTT (21.0-31.0) Seconds PTT Ratio Sodium (136-145) mmol/L Potassium (3.5-5.1) mmol/L Chloride (98-107) mmol/L Carbon Dioxide (21-32) mmol/L Anion Gap (3-11) BUN (7-18) mg/dl Creatinine (0.6-1.2) mg/dl Est Cr Clr Drug Dosing ml/min Est GFR ( Amer) Est GFR (Non-Af Amer) BUN/Creatinine Ratio (10-20) Glucose (70-99) mg/dl Calcium (8.5-10.1) mg/dl Phosphorus (2.5-4.9) mg/dl Magnesium (1.8-2.4) mg/dl Total Bilirubin (0.2-1) mg/dl AST (15-37) U/L ALT (12-78) U/L Alkaline Phosphatase (45-117) U/L Troponin I (0-0.045) ng/ml Total Protein (6.4-8.2) gm/dl Albumin (3.4-5.0) gm/dl Globulin (2.5-4.0) gm/dl Albumin/Globulin Ratio (0.9-2) Lipase (73-393) U/L TSH Cancelled (0.300-4.500) uIu/ml Urine Color Yellow Urine Appearance Clear (Clear) Urine pH 7.0 (4.5-7.5) Ur Specific Gardiner 1.007 (1.000-1.030) Urine Protein Negative (Negative) Urine Glucose (UA) Negative (Negative) Urine Ketones Negative (Negative) Urine Blood Negative (Negative) Urine Nitrite Negative (Negative) Urine Bilirubin Negative (Negative) Urine Urobilinogen Negative (Negative) Ur Leukocyte Esterase Negative (Negative) Imaging Data Radiologist's Impression: Radiology results as stated below per my review and the radiologist's interpretation: HEAD CTA HISTORY: dizziness, ataxia TECHNIQUE: Multiaxial CT images of the head were performed both before and after the intravenous administration of contrast to evaluate the major cerebral vessels. Maximum intensity projection images were also obtained. A dose lowering technique was utilized adhering to the principles of ALARA. COMPARISON: Head CT 05/30/2019. FINDINGS: The major dural venous sinuses are patent. The basilar artery is hypoplastic but patent. Persistent posterior circulations seen bilaterally. This is considered to be a normal variant. Visualized intracranial internal carotid arteries, distal vertebral arteries, and basilar artery are widely patent. There is no significant stenosis, occlusion, or aneurysm seen within the bilateral ACAs, MCAs, or inbound sales manager. IMPRESSION: No significant stenosis, occlusion, or aneurysm within the eagle of [place]. ACT 112: Negative or not required by law. Electronically signed by: Daniel Andrews M.D. 05/30/2019 12:[address] angio neck with con CLINICAL HISTORY: 63 years-old Female presenting with dizziness, ataxia. TECHNIQUE: Multidetector CT angiography of the neck was performed after the administration of intravenous contrast. 3-D volumetric and/or maximum intensity projection (MIP) images were subsequently reconstructed for review. IV contrast: 120 mL of Optiray 320. One or more dose lowering techniques were used consistent with the principles of ALARA (as low as reasonably achievable), including automatic exposure control, mA or kV adjustment to individual patient size, and/or use of iterative reconstruction. Stenosis measurements were based on NASCET-like criteria (distal lumen diameter as the denominator for stenosis measurement). COMPARISON: None. CT DOSE (mGy.cm): The estimated cumulative dose is 1099.92 mGy.cm. FINDINGS: Raise Driller topogram: Unremarkable. Aortic arch: Normal three-vessel aortic arch with patent origins of the branch vessels. Innominate artery: Patent. Right subclavian artery: Patent. Right common carotid artery: Patent. Right internal and external carotid arteries: Right carotid bifurcation patent. Right internal and external carotid arteries widely patent. Left common carotid artery: Patent. Left internal and external carotid arteries: Left carotid bifurcation patent. Left internal and external carotid arteries widely patent. Left subclavian artery: Patent though there is focal calcified atherosclerotic plaque along the proximal course with less than 25% stenosis. Vertebral arteries: Codominant vertebral arteries. Origins and courses of the bilateral vertebral arteries patent. Other: Limited intracranial evaluation within normal limits. Multiple thyroid nodules noted. Degenerative changes of the cervical spine. Lung apices clear. IMPRESSION: 1. No evidence of dissection, focal vessel occlusion, or significant stenosis of the cervical arteries. ACT 112: Negative or not required by law. Electronically signed by: Parker Siddiqui M.D. 05/30/2019 12:[address] head/brain wo con CLINICAL HISTORY: 63 years-old Female with dizziness, ataxia. Acute dizziness TECHNIQUE: Multiple axial CT images of the head were obtained without contrast. A dose lowering technique was utilized adhering to the principles of ALARA. COMPARISON: None. FINDINGS: No acute intracranial hemorrhage, midline shift, intracranial mass, hydrocephalus, territorial ischemia or abnormal extra-axial collection. Age- related involutional changes. Mild patchy white matter hypodensities suggest chronic microvascular ischemic disease. Cerebral vascular calcifications are noted. Subtle decreased attenuation of the left thalamus, and left cerebral peduncle. Cerebral vascular calcifications are noted. The calvarium is intact. The paranasal sinuses, mastoid air cells, and middle ear cavities are clear. IMPRESSION: 1. No acute intracranial hemorrhage, midline shift or acute territorial infarct. 2. Ill-defined decreased attenuation of the left elaine and left cerebral peduncle may be artifactual or reflect a small subtle acute infarct. Correlate with clinical presentation. ACT 112: Negative or not required by law. The above report was generated using voice recognition software. It may contain grammatical, syntax or spelling errors. Electronically signed by: Saleem Groves M.D. 05/30/2019 12:39 PM XR chest 1V portable HISTORY: Atypical Chest Pain COMPARISON: Chest 10/20/2012. FINDINGS: The lungs are clear. Cardiac silhouette is normal in size. No pleural effusions. No pneumothorax. IMPRESSION: No acute process. ACT 112: Negative or not required by law. Electronically signed by: Daniel Andrews M.D. 05/30/2019 12:19 PM ECG Data Attestation: I personally reviewed and interpreted this ECG as follows: Indication: + other (dizziness) Rate (beats per minute): 67 Rhythm: + normal sinus ECG Intervals/blocks: + Normal QRS (QRS 78) and + Normal QT-c (QT-c 407) ECG [place]: + Normal ECG ST segments: no ST depression and no ST elevation Blood Pressure Blood Pressure Findings: Elevated blood pressure Blood Pressure Disposition: further management by hospitalist MDM Narrative The patient is a pleasant 63 y/o woman with a pmhx of spinal stenosis, peripheral neuropathy 2/2 chemotherapy, HTN, HLD, CAD who presents to the emergency department with symptoms of weakness/dizziness beginning yesterday morning at 10am and worsening into the evening developing blurred vision that continued into today per HPI. On arrival the patient is in NAD, AFVSS. The patient appears clinically dry. She has subjective numbness/tingling in her left leg. She exhibits some imbalance to the left per RN with ambulation. Otherwise she has no objective deficits. 5/5 strength and SILT x 4 extremities and cerebellar function intact including [id number], alternating palms, [id number]. EKG unremarkable without evidence of acute ischemia. CXR negative. WBC, H/H, platelets wnl. Chemistry without acidosis. BuN 19 c/w patients clinically dry appearance. Magnesium 1.5 with repletion provided. LFTs and electrolytes unremarkable. Troponin negative/undetectable. UA negative for infection. CT head and CTA of head and neck demonstrates "Ill-defined decreased attenuation of the left elaine and left cerebral peduncle may be artifactual or reflect a small subtle acute infarct." Patient feeling improved after IVF hydration and Magnesium repletion. Reports able to ambulate to bathroom without difficulty and resolution of vision changes. Findings were reviewed with the patient and she was agreeable for admission for further evaluation. Case was discussed with Dr. Bourne, [facility] hospitalist, who will evaluate the patient for admission. Impression & Plan Hypomagnesemia, Dehydration, Dizziness, Stroke-like symptoms Discharge Plan Visit Data *Final* Discharge Date/Time: 05/30/19 16:30 Chief Complaint: Dizziness Stated Complaint: DIZZY BLURRED VISION ED Provider: Everton Oakes Discharge Problem: Hypomagnesemia, Dehydration, Dizziness, Stroke-like symptoms Patient Disposition: Admitted As Inpatient Discharge Instructions Interventions: ED Discharge Assessment Last Done: 05/30/19 16:30 The scribe's documentation has been prepared under my direction and personally reviewed by me in its entirety. I confirm that the note above accurately reflects all work, treatment, procedures, and medical decision making performed by me.
[2019-05-31 07:26] LABS: Basophils # (auto) 0.05 K/uL (0-0.2); Basophils % (auto) 0.8 %; Eosinophils # (auto) 0.22 K/uL (0-0.5); Eosinophils % (auto) 3.7 %; Hematocrit (blood only) 36.7 % (37-47); Hemoglobin 12.4 g/dL (12.0-16.0); Lymphocytes # (auto) 1.84 K/uL (1.2-3.4); Lymphocytes % (auto) 31.2 %; Mean Corpuscular Hemoglobin 29.5 pg (25-34); Mean Corpuscular Hgb Conc 33.8 g/dL (32-36); Mean Corpuscular Volume 87.4 fL (80-100); Mean Platelet Volume 10.5 fL (7.4-10.4); Monocytes # (auto) 0.39 K/uL (0.11-0.59); Monocytes % (auto) 6.6 %; Neutrophils % (auto) 57.7 %; Platelet Count 236 K/uL (130-400); RDW Coefficient of Variation 13.1 % (11.5-14.5); RDW Standard Deviation 42.2 fL (36.4-46.3)
[2019-05-31] MEDS: POTASSIUM CHLORIDE 20 MEQ TABCR PO SCH (07:57)
[2019-05-31] MEDS: MAGNESIUM OXIDE 400 MG TAB PO SCH (07:57)
[2019-05-31 08:00] LABS: BUN Creatinine Ratio 18.6 (10-20); Calcium 9.2 mg/dl (8.5-10.1); Creatinine Clr Calc Pharmacy 54.5 ml/min; Est GFR (African American) 62.4; Est GFR (Non-African American) 53.8; Potassium 3.9 mmol/L (3.5-5.1)
[2019-05-31 08:51] LABS: Estimated Average Glucose 111 mg/dl; Hemoglobin A1C 5.5 % (4.5-5.6)
[2019-05-31] MEDS ORDERED: METOPROLOL SUCC 50MG EXT REL TAB PO SCH (09:00)
[2019-05-31] MEDS ORDERED: CLOPIDOGREL BISULFATE 75 MG TAB PO SCH (09:00)
[2019-05-31] MEDS ORDERED: CYANOCOBALAMIN 500 MCG TABLET (VITAMIN B-12) PO SCH (09:00)
[2019-05-31] MEDS ORDERED: CHLORTHALIDONE 25 MG TAB PO SCH (09:00)
[2019-05-31] MEDS ORDERED: LOSARTAN POTASSIUM 50 MG TAB PO SCH (09:00)
[2019-05-31] MEDS ORDERED: PANTOprazole 40 MG TAB PO SCH (09:00)
[2019-05-31] MEDS ORDERED: AMLODIPINE BESYLATE 5 MG TAB PO SCH (09:00)
--- NOTE | 2019-05-31 10:41 | Neurology Consultation ---
Date of Consultation May 31, 2019 Assessment & Plan (1) TIA (transient ischemic attack): I suspect this patient experienced a posterior circulation TIA, potentially localizing to the elaine or pontine tegmentum. Her symptoms have resolved and her imaging is negative for acute or subacute infarct. Other than an upgoing toe on the left, her examination is nonlocalizing. Hypertension appears to be this patient's most significant stroke/TIA risk factor. Her blood pressure has been fairly elevated during her hospitalization and she will likely require some further adjustments of her antihypertensive regimen. I will defer to the hospitalist at this time for care and management of her blood pressure with further outpatient management through her PCP. Statin therapy through hospitalist and PCP as well, Crestor seems like a reasonable option at this time, previously on atorvastatin but with perhaps some history of intolerance to statin therapy noted. Follow-up with results of echocardiogram. Would recommend switching from daily low-dose aspirin to clopidogrel 75 mg/day. No further immediate neurological recommendations. History of Present Illness Reason for Consultation: CVA? Requesting Physician: Ric Bourne MD Attending Physician: Jacob Xavier DO History of Present Illness The patient is a 63-year-old female with a chief complaint of dizziness and blurry vision with the left eye only when looking to the left that began 1 day prior to her assessment in the emergency department yesterday. Symptoms began acutely at around 4 in the afternoon. She also complains of an associated feeling of weakness affecting the left leg with a tendency to list to the side with walking, no falls. No associated weakness of the upper limbs reported. No associated disturbance of speech. No associated head or neck pain. She was hypertensive during her initial assessment in the emergency department, blood pressure 178/91. This morning, the patient reports that her symptoms have resolved. An initial CT of the head suggested an area of low attenuation within the left elaine and left cerebral peduncle, either artifactual or possibly a small subacute infarct. A CT angiogram of the head and neck were unremarkable. Imaging described in further detail below. The patient was admitted for further assessment of a possible stroke. Family history noncontributory Allergies Allergy/AdvReac Type Severity Reaction Status Date / Time cat dander Allergy Unknown cough,runny Verified 04/13/19 15:38 nose No Known Drug Allergies Allergy Unknown . Verified 04/13/19 15:38 Home Medications Home Medications Medication Instructions Recorded Confirmed Type amlodipine 5 mg tablet 5 mg PO DAILY #90 tab 03/13/19 05/30/19 Rx aspirin 81 mg tablet,delayed 81 mg PO DAILY #90 tab 03/13/19 05/30/19 Rx release atorvastatin 20 mg tablet 20 mg PO QPM #90 tab 03/13/19 05/30/19 Rx chlorthalidone 25 mg tablet 25 mg PO DAILY #90 tab 03/13/19 05/30/19 Rx losartan 100 mg tablet 100 mg PO DAILY #90 tab 03/13/19 05/30/19 Rx metoprolol succinate 50 mg 50 mg PO DAILY #90 tab 03/13/19 05/30/19 Rx tablet,extended release 24 hr nitroglycerin 0.4 mg sublingual 0.4 mg SL Q5M PRN #25 tab 03/13/19 05/30/19 Rx tablet omeprazole 40 mg capsule,delayed 40 mg PO DAILY #90 cap 03/13/19 05/30/19 Rx release potassium chloride 20 mEq 20 meq PO BID #180 tab 03/13/19 05/30/19 Rx tablet,extended release gabapentin 300 mg capsule 600 mg PO HS #90 cap 04/13/19 05/30/19 Rx meloxicam 15 mg tablet 15 mg PO DAILY #90 tab 04/13/19 05/30/19 Rx Patient History Medical History CAD (coronary artery disease) stent in LAD 2011 Colon cancer (Resolved) s/p surgery and chemotherapy Dyslipidemia GERD (gastroesophageal reflux disease) Hypertension Lumbar degenerative disc disease Peripheral neuropathy secondary to chemotherapy Peripheral neuropathy due to chemotherapy Spinal stenosis Surgical History History of partial colectomy Social History Preferred Language: Polish Communication Ability: Effective Conveyor Monitor Required: No Beliefs That Will Affect Care: None marital status: marital status details: 1973 Current Living Situation: Spouse current occupational status: retired Other Information That Helps Us Care for You: No Feels Safe at Home: Yes Safety Concerns: Feels Safe At This Time Smoking Status: Never smoker Hx Alcohol Use: No Hx Substance Use: No Review of Systems Constitutional: no fever, no chills and no fatigue Eyes: as per Subjective / HPI; no blind spots and no eye pain Ear, Nose, Mouth, Throat: no tinnitus and no hearing loss Respiratory: no cough and no dyspnea Cardiovascular: no chest pain and no palpitations Gastrointestinal: no nausea and no vomiting Genitourinary: no urinary incontinence Musculoskeletal: no neck pain and no myalgia Integumentary: no lesions and no sores Neurologic: as per Subjective / HPI; no syncope, no headache(s), no confusion and no memory loss Psychiatric: no depression and no anxiety Hematologic / Lymphatic: no easy bleeding and no easy bruising Physical Exam Physical Exam: The patient is a well-developed, well-nourished elderly female. She is alert and fully oriented. Recent and remote memory intact. Attention and concentration normal. Patient exhibits a normal spontaneous speech pattern as well as an age-appropriate fund of knowledge. Normal comprehension of vocabulary. Visual funes full to confrontation. Visual acuity normal. There is mild anisocoria with the left pupil measuring 2 mm, right pupil measuring 3 mm, normal pupillary reactivity bilaterally. No ptosis. No ophthalmoplegia. Ocular movements normal. Facial sensation intact. There is no facial droop or weakness. Hearing intact. Palate elevates to midline. Shoulder shrug intact. Tongue protrudes to midline. Sensation intact all modalities in all 4 limbs. Deep tendon reflexes intact and symmetrical for the arms and legs bilaterally. Left plantar response upgoing, right plantar response downgoing. There is no dysdiadochokinesia or dysmetria eyevau-kr-[id number] or ucoa-hl-[id number] bilaterally. Ophthalmoscopic examination reveals normal-appearing optic disks and posterior segments. No papilledema or hemorrhages. Carotid pulses normal bilaterally, no bruits to auscultation. Gait and station not tested due to safety concerns. Patient exhibits normal muscle strength and tone for all 4 limbs proximally and distally. No atrophy. No abnormal movements observed. Results & Data Vital Signs (Past 12 Hours) Vital Signs Temp Pulse Resp BP Pulse Ox 05/31/19 07:26 36.6 C 70 18 155/77 H 93 05/31/19 03:35 36.7 C 71 18 129/80 95 05/30/19 23:27 36.6 C 73 17 102/63 94 Laboratory Results WBC 5.90, hemoglobin 12.4, hematocrit 36.7, platelet count 236, sodium 141, potassium 3.9, BUN 20, creatinine 1.08, glucose 98, hemoglobin A1c 5.5, calcium 9.2, magnesium 1.5, triglycerides 114, cholesterol 131, LDL 61, VLDL 23, HDL 47, vitamin B12 level [address] of the head completed yesterday negative for hemorrhage. There is a potential area of decreased attenuation within the left elaine on left cerebral peduncle, possibly artifactual or consistent with a small subacute infarct. I reviewed the images as well as the radiologist interpretation of this test. CT angiography of the head and neck unremarkable, no evidence for dissection, focal vessel occlusion, stenosis, or aneurysm. MRI of the brain negative for acute or subacute stroke. No specific abnormality identified corresponding with the above CT of the head findings making the CT findings likely artifactual. There is mild chronic small vessel ischemic disease. I specifically find no evidence of acute or subacute infarction within the brainstem, elaine/pontine tegmentum, or midbrain. I reviewed the images as well as the radiologist's interpretation of this test. Electrocardiogram reveals a normal sinus rhythm, 67 bpm. Coding Level of Care Code 88720 Initial In Care Lvl 3 Diagnoses TIA (transient ischemic attack) G45.9
--- NOTE | 2019-05-31 12:39 | XCELERA ---
[id number] \\[id number]
[2019-05-31] MEDS ORDERED: STROKE PATIENT DISCHARGE STA (15:23)
--- NOTE | 2019-05-31 15:49 | Pharmacy Report ---
Pharmacist Stroke Counseling - Date of Service May 31, 2019 - Scope: Pharmacy has been consulted to provide medication discharge counseling for this patient admitted with transient ischemic attack as per the Pharmacist Discharge Counseling for Stroke Patients Protocol. - Medications on Discharge: New Rx's Medication Instructions Recorded amlodipine 5 mg tablet 5 mg PO DAILY #90 tab 03/13/19 aspirin 81 mg tablet,delayed 81 mg PO DAILY #90 tab 03/13/19 release atorvastatin 20 mg tablet 20 mg PO QPM #90 tab 03/13/19 chlorthalidone 25 mg tablet 25 mg PO DAILY #90 tab 03/13/19 losartan 100 mg tablet 100 mg PO DAILY #90 tab 03/13/19 metoprolol succinate 50 mg 50 mg PO DAILY #90 tab 03/13/19 tablet,extended release 24 hr nitroglycerin 0.4 mg sublingual 0.4 mg SL Q5M PRN #25 tab 03/13/19 tablet omeprazole 40 mg capsule,delayed 40 mg PO DAILY #90 cap 03/13/19 release potassium chloride 20 mEq 20 meq PO BID #180 tab 03/13/19 tablet,extended release gabapentin 300 mg capsule 600 mg PO HS #90 cap 04/13/19 meloxicam 15 mg tablet 15 mg PO DAILY #90 tab 04/13/19 atorvastatin 40 mg PO DAILY #30 tab 05/31/19 clopidogrel [Plavix] 75 mg PO DAILY #10 tab 05/31/19 clopidogrel [Plavix] 75 mg PO DAILY #30 tab 05/31/19 - Action: The above medications, specifically ones for stroke treatment/prophylaxis, have been reviewed in detail with the patient prior to discharge. This includes indication, common adverse reactions, drug interactions, and medication administration. Medication counseling has been employed using the teach-back method to ensure understanding. - Outcome: The patient has demonstrated understanding of the medications. Please note, they are aware that the pharmacist will call them within 72 hours post-discharge to confirm that the appropriate medications are being taken and answer any further medication related questions the patient might have at that time. Contact information Individual to be contacted: patient Phone number: [phone] Best time to call: anytime Additional comments: Patient has been on Plavix before. Patient understands that she can double her dose of atorvastatin to finish her 20mg tablets at home. Thank you for allowing pharmacy to be involved in the care of this patient. Please call [phone] or [phone] with any additional questions
--- NOTE | 2019-05-31 17:49 | Discharge Summary ---
Date of Service May 31, 2019 Admission HPI Per Admitting Provider Ramona Serrato is a 63 year old female who presented to the ER due to dizziness and eye blurring that has been persistent since she woke up yesterday. She had an episode which sounds vertiginous 6 months ago where "the whole room felt like an earthquake". She feels this episode was very different to that one an mainly manifested as eye blurring with left > right but with associated dizziness although she did not feel she was going to faint. Episodes would last for hours at a time. She is able to bring on the the same sensation intermittently by turning her head to the left even when lying down. She denies any change in speech, hearing, co-ordination, extremity weakness or change in sensation. No fevers, chills, left ear pain/fullness, nasal congestion, sinus pain. Principal Diagnosis TIA Discharge Exam In general she is awake and alert pleasant no distress. HEENT normocephalic atraumatic mucous members moist. Breathing unlabored no accessory muscle use good effort. Skin shows no rashes no pallor or icterus. No notable focal neuro deficitssee Dr. Longoria's note for more detail on fine deficits that he noted. Mental status intact. Discharge Data Allergies Allergy/AdvReac Type Severity Reaction Status Date / Time cat dander Allergy Unknown cough,runny Verified 04/13/19 15:38 nose No Known Drug Allergies Allergy Unknown . Verified 04/13/19 15:38 Consultations 05/30/19 13:41 ED Decision to Admit Stat 05/30/19 16:58 Consult Case Management - Discharge Planning Routine Consult Neurology Routine Ordered Studies 05/30/19 11:32 CT angio head w con Stat CT angio neck with con Stat CT head/brain wo con Stat 05/30/19 16:58 MR brain wo/w con Routine Hospital Course (1) TIA (transient ischemic attack): Initial concern was that she had a stroke, fortunately with the MRI not showing any stroke the CT was artifact. However it seemed that she did have a posterior circulation TIA. -Cervical circulation without any significant disease making atheroembolic large vessel mechanism extremely unlikely -No A. fib/echo findings of concernmaking cardioembolic far less likely -Almost certainly small vessel disease intracranial. Main risks are hypertension and hyperlipidemia. -Discussed secondary risk reductionchange from aspirin to Plavix, ensure that she is on a plaque stabilizing dose of atorvastatin (things were not entirely clear on med recbut she notes she was on atorvastatin at some degree of dose and was tolerating it well, and rather it was rosuvastatin what had caused muscle aches. We discussed that we would want her on 40 mg of atorvastatin at least, she expressed understanding of this). Follow blood pressures at homeher pressures here were somewhat erratic, begging the question of autoregulation versus what her actual baseline ranges. Wanting to not in troduce iatrogenic this with overtreating her blood pressure, we would send her home on her current regimen and have close/vigilant outpatient monitoring (implored her to check 2-3 times a day at random conditions and then review with her PCP.) Discussed holding off on any further NSAIDsdiscontinue Mobic. (See below in regards to her back pain). Discussed critical importance of lifestyleencouraging 30 minutes of light cardiovascular exercise daily as well as a Mediterranean type diet. Stable for discharge to home (2) Lumbar degenerative disc disease: She does have DJD/spinal stenosis, but she does also note most of her pain being in her low back and buttocks. This is a frequently seen biomechanical pattern. Oftentimes the pain is multifactorial where the structural disease is the "spark that lit the fire" but the biomechanical pain pattern is what causes significant amount of the patient's discomfort. In this respect we will ask for referral to Dr. Ede Barrios, for a trial of OMT, and in regards to her bedtime medication, given that we will be putting the meloxicam on the shelf, will have her resume Tylenol arthritis nightly. (3) Hypertension: see above, no med changes for now, close outpt monitoring and f/u (4) Peripheral neuropathy due to chemotherapy: Continue gabapentin 600 mg HS (5) CAD (coronary artery disease): ASA switched to plavix as above. otherwise home meds unchanged. 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 We definitely would want her on some degree of plaque stabilizing dosing. (7) DVT prophylaxis: SCDs. stable for home. (8) Discharge planning issues: stable for home Total Time Total Time Spent Total Time Spent (In Minutes): >30 Discharge Plan Discharge Items Patient Disposition: Home - Self-Care Reason For Visit: STROKE-LIKE SYMPTOMS Discharge Diagnosis: TIA Activity: Per Instructions section Non-emergency contact: Primary Care Provider Call non-emergency contact if: your symptoms worsen Follow-up/Referrals: Sana Kenney CRNP [Nurse Practitioner] - 06/04/19 2:00 pm (Tuesday June 04, 2019 @ 2:00) Berta Odonnell MD [Primary Care Provider] - Diet: Regular Addtl Attending Provider Instructions: Transient Ischemic Attack - TIA You came to the hospital for weakness, blurry vision and dizziness. When you came to the hospital there was concern that you had a stroke and we ordered several imaging studies to further evaluate for a stroke. The imaging did not show a stroke. We had the neurologist consulted to review your case. They determined that you had a TIA. This means that your brain tissue was not getting the oxygen that it required to function properly. This resolved and did not leave any significant brain tissue . This could have been from a clot that stopped blood flow to a section of your brain that resolved. Because of this TIA we switched you from aspirin to Plavix to thin your blood, and ensured that you had a 40 mg dose of Atorvastatin to lower lipid and stabilize your blood vessels. High blood pressure - hypertension The one risk factor that was identified by the neurologist that was a risk factor for having a TIA was that you had high blood pressure when you were in the ER. Your blood pressure was in the 170's systolic. It will be important for you to monitor your blood pressure when you go home and to follow up with your primary care doctor to help you to manage your blood pressure. Other things that help with elevated blood pressure include diet and exercise as below. High lipid levels - Hyperlipidemia You were on Atorvastatin and we are going to increase the dose of this to 40 mg. If you were taking 20 mg you can take two of these until you get the 40 mg in the mail. We will continue this medication and you can follow up with your manager transport to see if they would like to continue this lipid lowering medication or make any adjustments. This medication decreases lipids and stabilizing your blood vessels. Diet: As we discussed, work on increasing the number of fruits and vegetables and decrease the amount of starchy foods like breads and potatoes. Eat lean meats like chicken without skin and pork and fish rather than hamburger or red meats. Exercise: Aim for 30 minutes of aerobic exercise such as walking, pool aerobics, or sitting biking. Back pain: For your back pain we would like for you to stop taking Meloxicam. You can see Dr. Rajeev Barrios who is a Osteopathic physician who could help to treat your back pain. Reflux: For your acid reflux we discussed you stopping your Nexium because it affects the absorption of Plavix. Step 1) stop and see how you do without Nexium. Step 2) If you are having continued symptoms overnight you can try 40 mg of Pepcid to get over this immediate reflux event. Step 3) if you are having continued symptoms then you can have a discussion with your primary doctor to discuss the risks and benefits of going back on Nexium. Pending Studies at Discharge: No Stand-Alone Forms: Medications to Prevent Stroke, [place], Smoking Cessation Medications and DC Order Prescriptions: New clopidogrel [Plavix] 75 mg tablet 75 mg PO DAILY Qty: 30 RF: 0 atorvastatin 40 mg tablet 40 mg PO DAILY Qty: 30 RF: 0 clopidogrel [Plavix] 75 mg tablet 75 mg PO DAILY Qty: 10 RF: 0 Continued gabapentin 300 mg capsule 600 mg PO HS Qty: 90 RF: 3 nitroglycerin 0.4 mg tablet, sublingual 0.4 mg SL Q5M PRN (Reason: chest pain) Qty: 25 RF: 0 amlodipine 5 mg tablet 5 mg PO DAILY Qty: 90 RF: 3 chlorthalidone 25 mg tablet 25 mg PO DAILY Qty: 90 RF: 3 losartan 100 mg tablet 100 mg PO DAILY Qty: 90 RF: 3 metoprolol succinate 50 mg tablet extended release 24 hr 50 mg PO DAILY Qty: 90 RF: 3 potassium chloride 20 mEq tablet extended release 20 meq PO BID Qty: 180 RF: 3 Discontinued meloxicam 15 mg tablet 15 mg PO DAILY Qty: 90 RF: 3 aspirin [Adult Low Dose Aspirin] 81 mg tablet,delayed release (DR/EC) 81 mg PO DAILY Qty: 90 RF: 3 atorvastatin 20 mg tablet 20 mg PO QPM Qty: 90 RF: 3 omeprazole 40 mg capsule,delayed release(DR/EC) 40 mg PO DAILY Qty: 90 RF: 3 Discharge Orders: Discharge Order (Routine); Ordered 05/31/19 Ordered By: Samir Nicole/Other Patient Handouts: Cholesterol Control, TIA, High Blood Pressure Stroke Link, Cholesterol Lifestyle Changes, Cholesterol Control Meds, Hype rtension Dc Admission Data Admit Date/Time: 05/30/19 15:52 Attending Provider: Jacob Xavier Admit Provider: Ric Bourne Primary Care Provider: Berta Odonnell Other Providers: Ric Bourne ; Meño Longoria Other Interventions: Discharge Summary Assessment (RN) Last Done: 05/31/19 16:03 DC Date/Time DO NOT enter until pt leaves facility: 05/31/19 16:40 Coding Level of Care Code D/C Day Management >30 mins Diagnoses TIA (transient ischemic attack) G45.9 Lumbar degenerative disc disease M51.36 Hypertension I10 Hypertension type: essential hypertension Peripheral neuropathy due to chemotherapy G62.0; T45.1X5A CAD (coronary artery disease) I25.10 Coronary Disease-Associated Artery/Lesion type: cheesh-na artery [place] vs. 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
--- NOTE | 2019-06-01 13:39 | Pharmacy Report ---
Pharmacist Post D/C Phone Note - Phone Note: Date of phone call: June 01, 2019. Individual with whom pharmacist spoke to: REBECCA WILLIAM The following questions were reviewed during the phone call with responses listed below each: Can you tell me the medications that you are currently taking as well as when and how you take each medication? -See Table Below When have you missed any doses of your medications? - none What side effects are you having from your medications, specifically, the new medications you were started on? - none What questions do you have about your medications? - none What problems are you having obtaining your medications? - none When is your next appointment with your primary care doctor? - Sunday 06/04 As per the Pharmacist Discharge Counseling for Stroke Patients Protocol, this phone call has been completed within 72 hours of discharge. Thank you for allowing us to be involved in the care of this patient. - Home Medications: New Rx's Medication Instructions Recorded amlodipine 5 mg tablet 5 mg PO DAILY #90 tab 03/13/19 chlorthalidone 25 mg tablet 25 mg PO DAILY #90 tab 03/13/19 losartan 100 mg tablet 100 mg PO DAILY #90 tab 03/13/19 metoprolol succinate 50 mg 50 mg PO DAILY #90 tab 03/13/19 tablet,extended release 24 hr nitroglycerin 0.4 mg sublingual 0.4 mg SL Q5M PRN #25 tab 03/13/19 tablet potassium chloride 20 mEq 20 meq PO BID #180 tab 03/13/19 tablet,extended release gabapentin 300 mg capsule 600 mg PO HS #90 cap 04/13/19 atorvastatin 40 mg PO DAILY #30 tab 05/31/19 clopidogrel [Plavix] 75 mg PO DAILY #10 tab 05/31/19 clopidogrel [Plavix] 75 mg PO DAILY #30 tab 05/31/19
== END 2019-05-31 16:40 | disposition home or self-care (01) | DRG 69 ==
LOC: ED 09:46 → SUATTDRO 15:52 → 2S 15:52